=== PATIENT | male | born 1995 | race Caucasian/White ===

== ENCOUNTER 2024-03-04 09:11 | Emergency (ER) | payer OTHER, SELFPAY ==
[2024-03-04 09:16] VITALS: BP 144/90; PULSE 70; TEMP 36.6; O2SAT 100; BMI 25.1
--- NOTE | 2024-03-04 09:30 | XR_ITS ---
The [address] [address] Patient Name: ERNESTO MURRAY MRN: [id number] date: 1995 Sex: M Assigned Patient Location: ER Current Patient Location: ER Accession/Order Number: [id number] Exam Date: 03/04/2024 10:00 Report Date: 03/04/2024 10:58 At the request of: SULLY RUTHERFORD Procedure: XR thoracic spine 3V EXAMINATION: XR thoracic spine 3V HISTORY: Atraumatic pain COMPARISON: No relevant comparison available. FINDINGS: BONES: No significant spondylosis, scoliosis, fracture, or visible bony lesion. DISC SPACES: No significant disc height narrowing, subluxation, or endplate abnormality. PARASPINOUS: Negative. No paraspinous abnormality is seen. OTHER: Negative. XR/XR thoracic spine 3V IMPRESSION: 1. No appreciable acute abnormality or significant degenerative changes. Electronically authenticated by: ÓSCAR WATTS Date: 03/04/2024 10:58
--- NOTE | 2024-03-04 09:31 | ED_ITS ---
HPI HPI - Back Pain/Injury General Chief Complaint: Back Pain/Injury Stated Complaint: BACK PAIN Time Seen by Provider: 03/04/24 09:27 Source: patient Mode of arrival: walk-in History of Present Illness HPI Narrative: 29-year-old male presents to the emergency department for back pain. 4 days ago he was working on his truck and he bent over and he felt severe pain suddenly. He did not fall and nothing struck him in the back. He indicates the lower thoracic region, he does not have pain in the lumbar or cervical area. No dysuria or hematuria or weakness or any numbness. Related Data Previous Rx's ?Medication ?Instructions ?Recorded acetaminophen 300 mg-codeine 30 mg 1 tab PO Q6H PRN pain 5 days #20 03/04/24 tablet tabs ibuprofen 800 mg tablet 800 mg PO Q8H PRN pain #20 tabs 03/04/24 methocarbamol 750 mg tablet 750 mg PO Q6H PRN pain #20 tabs 03/04/24 Allergies Allergy/AdvReac Type Severity Reaction Status Date / Time Penicillins Allergy Severe Anaphylaxis Verified 03/04/24 09:19 Opioid HPI Opioid Management Most Recent Opioid Data: Last JUL Pain Assessment 03/04/24 09:47 Review of Systems ROS Narrative A ten point review of systems is negative except as noted above. PFSH PFSH Social History Little interest or pleasure in doing things: not at all Feeling down, depressed, or hopeless: not at all Exam Narrative Exam Narrative: Nurses note and vital signs reviewed and patient is not hypoxic. General: The patient uncomfortable sitting in a chair. Skin: Warm, dry, no pallor noted. There is no rash noted. Head: Normocephalic, atraumatic Eye: Normal conjunctiva, no drainage Ears, Nose, Mouth, and Throat: oral mucosa is moist. Nares patent. Cardiovascular: Regular Rate and Rhythm Respiratory: Patient is in no distress, no accessory muscle use, lungs are clear to auscultation, no wheezing, rales or rhonchi Back: No bruise rash or abrasion or palpable tenderness present. GI: Soft and nontender Musculoskeletal: The patient has no evidence of calf tenderness, no pitting edema, symmetrical pulses noted bilaterally Neurological: A&O, normal speech, lower extremity strength intact Psychiatric: Cooperative Constitutional Vital Signs, click to edit/add: Last Vital Signs Temp 98 F 03/04/24 09:16 Pulse 70 03/04/24 09:16 Resp 18 03/04/24 09:16 BP 144/90 H 03/04/24 09:16 Pulse Ox 100 03/04/24 09:16 Course Vital Signs Vital signs: Vital Signs Temperature 98 F 03/04/24 09:16 Pulse Rate 70 03/04/24 09:16 Respiratory Rate 18 03/04/24 09:16 Blood Pressure 144/90 H 03/04/24 09:16 Pulse Oximetry 100 03/04/24 09:16 Temperature 98 F 03/04/24 09:16 Pulse Rate 70 03/04/24 09:16 Respiratory Rate 18 03/04/24 09:16 Blood Pressure 144/90 H 03/04/24 09:16 Pulse Oximetry 100 03/04/24 09:16 MDM - Back Pain/Injury MDM Narrative Medical decision making narrative: X-rays showed no acute findings. He was given Toradol and Norflex here and prescribed Tylenol 3, Robaxin, and ibuprofen. He was also given a work note. Treatment diagnosis and follow-up were discussed with the patient. Differential Diagnosis Differential diagnosis: Likely strain of lumbar region and thoracic back pain Imaging Data Thoracic x-ray: Radiologist's impression: ITS Impressions Thoracic Spine X-Ray 03/04/24 09:30 IMPRESSION: 1. No appreciable acute abnormality or significant degenerative changes. Electronically authenticated by: ÓSCAR WATTS Date: 03/04/2024 10:58 Discharge Plan Discharge Chief Complaint: Back Pain/Injury Clinical Impression: Thoracic back pain Patient Disposition: Home, Self-Care Time of Disposition Decision: 11:11 Condition: Good Mode of Transportation: Private Vehicle Prescriptions / Home Meds: New acetaminophen-codeine 300-30 mg tablet 1 tab PO Q6H PRN (Reason: pain) 5 Days Qty: 20 0RF ibuprofen 800 mg tablet 800 mg PO Q8H PRN (Reason: pain) Qty: 20 0RF methocarbamol 750 mg tablet 750 mg PO Q6H PRN (Reason: pain) Qty: 20 0RF Print Language: Ecuadorean Instructions: Back Pain (ED) Referrals: GUERDA ZUÑIGA [Primary Care Provider] - 1 week
[2024-03-04] MEDS: ORPHENADRINE 60 MG/ 2 ML VIAL IM (09:47)
[2024-03-04] MEDS: KETOROLAC TROMETHAMINE 60 MG/2 ML VIAL IM (09:47)
== END 2024-03-04 11:18 | disposition home or self-care (01) ==
PROVIDERS: Emergency Provider Emergency Medicine; PCP Family Medicine
DX: M54.6 Pain in thoracic spine (principal)
CPT/HCPCS: 72072; 96372; 99284; J1885; J2360

== ENCOUNTER 2024-03-07 23:41 | Emergency (ER) | payer OTHER, SELFPAY ==
[2024-03-07 23:42] VITALS: BP 117/79; PULSE 95; TEMP 36.6; O2SAT 100; BMI 25.1
--- NOTE | 2024-03-08 00:09 | ED_ITS ---
HPI HPI - Back Pain/Injury General Chief Complaint: Back Pain/Injury Stated Complaint: back injury Time Seen by Provider: 03/07/24 23:55 Source: patient Mode of arrival: walk-in Limitations: no limitations History of Present Illness HPI Narrative: seen here Wednesday and diagnosed with muscular thoracic back strain. States his back was starting to feel better. States they are expecting new furniture tomorrow so he and his female partner were moving a small air conditioner. He picked it up and felt a pop in his right back at the same site as the original injury. he is suppose to go back to work in a couple of days but doesn't believe he is going to make it. States he came in to check that there were no other injuries or concerns. He does not have any radicular symptoms or extremity weakness or numbness. Not short of breath Related Data Previous Rx's ?Medication ?Instructions ?Recorded acetaminophen 300 mg-codeine 30 mg 1 tab PO Q6H PRN pain 5 days #20 03/04/24 tablet tabs acetaminophen 300 mg-codeine 30 mg 1 tab PO Q6H PRN pain 5 days #20 03/04/24 tablet tabs ibuprofen 800 mg tablet 800 mg PO Q8H PRN pain #20 tabs 03/04/24 ibuprofen 800 mg tablet 800 mg PO Q8H PRN pain #20 tabs 03/04/24 methocarbamol 750 mg tablet 750 mg PO Q6H PRN pain #20 tabs 03/04/24 methocarbamol 750 mg tablet 750 mg PO Q6H PRN pain #20 tabs 03/04/24 Allergies Allergy/AdvReac Type Severity Reaction Status Date / Time Penicillins Allergy Severe Anaphylaxis Verified 03/07/24 23:48 Opioid HPI Opioid Management Most Recent Opioid Data: Last JUL Pain Assessment 03/04/24 09:47 Review of Systems ROS Status of ROS 10 or more systems reviewed and unremark able except as noted in history and below PFSH PFSH Social History Little interest or pleasure in doing things: not at all Feeling down, depressed, or hopeless: not at all Exam Constitutional Vital Signs, click to edit/add: Last Vital Signs Temp 98 F 03/07/24 23:42 Pulse 95 H 03/07/24 23:42 Resp 18 03/07/24 23:42 BP 117/79 03/07/24 23:42 Pulse Ox 100 03/07/24 23:42 O2 Del Method Room Air 03/07/24 23:42 Common normals: average body habitus, oriented x3, no limitations, healthy appearing, alert and well nourished [facility] Common normals: normocephalic and head/scalp atraumatic Eye Common normals: PERRL, EOMs intact bilaterally and conjunctivae normal Chest Other: mild tenderness pos. thoracic right chest wall Respiratory Common normals: normal respiratory effort, no retractions, no use of accessory muscles and clear to auscultation bilaterally Cardio Common normals: regular rate, regular rhythm, S1 normal heart sound and S2 normal heart sound GI Common normals: Normal to inspection, nondistended, normoactive bowel sounds present and soft to palpation Extremity Common normals: normal to inspection and full ROM Neuro Common normals: oriented x3, CN's II-XII intact bilaterally, moves all extremities and no focal motor deficits Psych Appearance: grossly normal Course Vital Signs Vital signs: Vital Signs Temperature 98 F 03/07/24 23:42 Pulse Rate 95 H 03/07/24 23:42 Respiratory Rate 18 03/07/24 23:42 Blood Pressure 117/79 03/07/24 23:42 Pulse Oximetry 100 03/07/24 23:42 Oxygen Delivery Method Room Air 03/07/24 23:42 Temperature 98 F 03/07/24 23:42 Pulse Rate 95 H 03/07/24 23:42 Respiratory Rate 18 03/07/24 23:42 Blood Pressure 117/79 03/07/24 23:42 Pulse Oximetry 100 03/07/24 23:42 Oxygen Delivery Method Room Air 03/07/24 23:42 MDM - Back Pain/Injury MDM Narrative Medical decision making narrative: patient presents with recurrence of thoracic muscular strain. Patient given dose of steroid tonight. He still has muscle relaxant and motrin at home. Work note extended to include 03/09 to allow him more time to re cooperate. Discharge Plan Discharge Chief Complaint: Back Pain/Injury Clinical Impression: Thoracic back pain Patient Disposition: Home, Self-Care Prescriptions / Home Meds: No Action acetaminophen-codeine 300-30 mg tablet 1 tab PO Q6H PRN (Reason: pain) 5 Days Qty: 20 0RF ibuprofen 800 mg tablet 800 mg PO Q8H PRN (Reason: pain) Qty: 20 0RF methocarbamol 750 mg tablet 750 mg PO Q6H PRN (Reason: pain) Qty: 20 0RF acetaminophen-codeine 300-30 mg tablet 1 tab PO Q6H PRN (Reason: pain) 5 Days Qty: 20 0RF ibuprofen 800 mg tablet 800 mg PO Q8H PRN (Reason: pain) Qty: 20 0RF methocarbamol 750 mg tablet 750 mg PO Q6H PRN (Reason: pain) Qty: 20 0RF Print Language: Irish Instructions: Thoracic Pain (ED) Referrals: GUERDA ZUÑIGA [Primary Care Provider] - 1 week
--- OUTSIDE RECORDS SUMMARY | 2024-03-08 00:11 | XMS_ITS | CCD ---
Author Organization [facility] Inform ion Partnership [employer]PER[employer] [facility] Care Team Providers Care Resistor Coater Name Role Phone DR PHOEBE ZUÑIGA Primary Care Unavailable COLTEN HUMPHRIES Admitting Unavailable COLTEN HUMPHRIES Attending Unavailable COLTEN HUMPHRIES Consulting Unavailable Jose Heck Consulting Unavailable MD Rishi Guerra Attending Provider MD Phoebe Zuñiga Primary Care Provider [phone] AAMIR CH Attending Unavailable AAMIR CH Attending Unavailable Allergies Allergy Classification Reported Allergen(s) Allergy Type Date of Onset Reaction(s) Facility (2 sources) Penicillins Drug allergy (disorder) Swelling of Lip/Tongue/Thro at [facility] Repository Medications Current Medications Medication Drug Class(es) Dates Sig (Normalized) Sig (Original) pantoprazole 40 mg delayed release oral tablet (1 source) Proton Pump Inhibitor Start: 08-12-2021 take 40 mg by mouth once daily Pantoprazole Active 40 MG PO Daily August 12, 2021 1:13pm Problems Problem Classification Problem Date Documented Da te Episodic/Chronic Abdominal pain (1 source) Epigastric pain; Translations: [EPIGASTRIC PAIN] Onset: 08-05-2021 Episodic Esophageal disorders (1 source) Gastro-esophageal reflux disease without esophagitis; Translations: [GERD WITHOUT ESOPHAGITIS] Onset: 08-05-2021 Chronic Gastrointestinal hemorrhage (3 sources) Hematemesis; Translations: [HEMATEMESIS] Onset: 08-02-2021 Episodic Nausea and vomiting (1 source) Vomiting, unspecified; Translations: [VOMITING UNSPECIFIED] Onset: 08-05-2021 Episodic Substance-related disorders (1 source) Nicotine dependence, cigarettes, uncomplicated; Translations: [NICOTINE DEPEND CIGARETTES UNCOMP] Onset: 08-05-2021 Chronic Results Test Name Value Interpretation Reference Range Facility COVID[place] [facility] [place] SARS-CoV-2 (COVID-19) RNA KRISTYN+probe Ql (Unsp spec) Negative Normal Negative [facility] Comment on above: Order Comment: Healt hcare Worker?: N Result Comment: Testing for SARS-CoV-2 by RT-PCR This test was developed and its performance characteristics determined by [employer]) and validated at the [facility]. This test has not been FDA cleared or approved. This test has been authorized by FDA under an Emergency Use Authorization (EUA). This test has been validated in accordance with the FDA's Guidance Document (Policy for Diagnostics Testing in Laboratories Certified to Perform High Complexity Testing under CLIA prior to Emergency Use Authorization for Coronavirus Disease-2019 during the Public Health Emergency) issued on August 10, 2019. This test is only authorized for the duration of time the declaration that circumstances exist justifying the authorization of the emergency use of in vitro diagnostic tests for detection of SARS-CoV-2 virus and/or diagnosis of COVID-19 infection under section 564(b)(1) of the Act, 21 U.S.C. 360bbb-3(b)(1), unless the authorization is terminated or revoked sooner. PERFORMED BY: [place] [address] PATHOLOGIST NURSE MONITORING YANCY ARELLANO M.D. Performed By: #### C OVID 19 [facility] [place] #### [address] COVID-19 Positive/NegativeOr dered By: Rishi Guerra on 08-08-2021 SARS-CoV-2 (COVID-19) N gene KRISTYN+probe Ql (Resp) Negative Negative [facility] Comment on above: Testing for SARS-CoV -2 by RT-PCRThis test was developed and its performance characteristics determined by [email or web address]) and validated at the [facility]. This test has not been FDA cleared or approved. This test has been authorized by FDA under an Emergency Use Authorization (EUA). This test has been validated in accordance with the FDA's Guidance Document (Policy for Diagnostics Testing in Laboratories Certified to Perform High Complexity Testing under CLIA prior to Emergency Use Authorization for Coronavirus Disease-2019 during the Public Health Emergency) issued on August 10, 2019. This test is only authorized for the duration of time the declaration that circumstances exist justifying the authorization of the emergency use of in vitro diagnostic tests for detection of SARS-CoV-2 virus and/or diagnosis of COVID-19 infection under section 564(b)(1) of the Act, 21 U.S.C. 360bbb-3(b)(1), unless the authorization is terminated or revoked sooner. AMYLASEon 08-02-2021 Amylase [Catalytic activity/Vol] 70 U/L Normal 25-115 [facility] Comment on above: Performed By: #### C MISAEL GRUBER AMY #### [facility] [address] [place] [address] Dr. Jena Beavers CBC AUTO DIFFon 08-02-2021 BASO # 0.1 103/ul Normal 0.0-0.1 [facility] Comment on above: Performed By: #### C BC #### [facility] [address] [place] [address] Dr. Jena Beavers Basophils/100 WBC (Bld) 0.5 % Normal 0.2-2.0 [facility] Comment on above: Performed By: #### C BC #### [facility] [address] [place] [address] Dr. Jena Beavers EO # 0.2 103/ul Normal 0.0-0.7 [facility] Comment on above: Performed By: #### C BC #### [facility] [address] [place] [address] Dr. Jena Beavers Eosinophils/100 WBC (Bld) 1.4 % Normal 0.9-7.0 [facility] Comment on above: Performed By: #### C BC #### [facility] [address] [place] [address] Dr. Jena Beavers Erythrocyte distribution width (RBC) [Ratio] 12.3 % Normal 11.0-15.0 [facility] Comment on above: Performed By: #### C BC #### [facility] [address] [place] [address] Dr. Jena Beavers Hematocrit (Bld) [Volume fraction] 44.5 % Normal 42.0-54.0 [facility] Comment on above: Performed By: #### C BC #### [facility] [address] [place] [address] Dr. Jena Beavers Hemoglobin (Bld) [Mass/Vol] 14.9 g/dL Normal 14.0-18.0 [facility] Comment on above: Performed By: #### C BC #### [facility] [address] [place] [address] Dr. Jena Beavers IG # 0.03 10e3/ul Normal 0.00-0.03 [facility] Comment on above: Performed By: #### C BC #### [facility] [address] [place] [address] Dr. Jena Beavers IG % 0.2 % Normal 0.0-0.5 [facility] Comment on above: Performed By: #### C BC #### [facility] [address] [place] [address] Dr. Jena Beavers LYMPH # 3.5 103/ul Normal 1.2-3.8 [facility] Comment on above: Performed By: #### C BC #### [facility] [address] [place] [address] Dr. Jena Beavers Lymphocytes/100 WBC (Bld) 26.6 % Normal 20.5-60.0 [facility] Comment on above: Performed By: #### C BC #### [facility] [address] [place] [address] Dr. Jena Beavers MANUAL DIFF REQ NO Normal [facility] Comment on above: Performed By: #### C BC #### [facility] [address] [place] [address] Dr. Jena Beavers MCH (RBC) [Entitic mass] 31.5 pg Normal 25.9-34.0 [facility] Comment on above: Performed By: #### C BC #### [facility] [address] [place] [address] Dr. Jena Beavers MCHC (RBC) [Mass/Vol] 33.5 g/dL Normal 29.9-35.2 [facility] Comment on above: Performed By: #### C BC #### [facility] [address] [place] [address] Dr. Jena Beavers MCV (RBC) [Entitic vol] 94.1 fL Critically high 80.0-94.0 [facility] Comment on above: Performed By: #### C BC #### [facility] [address] [place] [address] Dr. Jena Beavers MONO # 1.0 103/ul Critically high 0.3-0.8 [facility] Comment on above: Performed By: #### C BC #### [facility] [address] [place] [address] Dr. Jena Beavers Monocytes/100 WBC (Bld) 7.9 % Normal 1.7-12.0 [facility] Comment on above: Performed By: #### C BC #### [facility] [address] [place] [address] Dr. Jena Beavers NEUT # 8.2 103/ul Critically high 1.4-6.5 [facility] Comment on above: Performed By: #### C BC #### [facility] [address] [place] [address] Dr. Jena Beavers Neutrophils/100 WBC (Bld) 63.4 % Normal 43.0-75.0 [facility] Comment on above: Performed By: #### C BC #### [facility] [address] [place] [address] Dr. Jena Beavers Platelet mean volume (Bld) [Entitic vol] 9.5 fL Normal 9.5-13.5 [facility] Comment on above: Performed By: #### C BC #### [facility] [address] [place] [address] Dr. Jena Beavers PLT 258 103/ul Normal 150-450 [facility] Comment on above: Performed By: #### C BC #### [facility] [address] [place] [address] Dr. Jena Beavers RBC 4.73 106/ul Normal 4.70-6.10 [facility] Comment on above: Performed By: #### C BC #### [facility] [address] [place] [address] Dr. Jena Beavers WBC 13.0 103/ul Critically high 4.0-11.[address] [facility] Comment on above: Performed By: #### C BC #### [facility] [address] [place] [address] Dr. Jena Beavers LIPASEon 08-02-2021 Lipase [Catalytic activity/Vol] 77.0 U/L Normal 23.0-300.0 [facility] Comment on above: Performed By: #### C ALLYN LIPA, JUAN #### [facility] [address] [place] [address] Dr. Jena Beavers PROF 14(COMP METB)on 022 Albumin [Mass/Vol] 4.7 g/dL Normal 3.4-5.0 [facility] Comment on above: Performed By: #### C MP LIPA, JUAN #### [facility] [address] [place] [address] Dr. Jena Beavers Albumin/Globulin [Mass ratio] 1.5 {ratio} Normal [facility] Comment on above: Performed By: #### C MP LIPA, JUAN #### [facility] [address] [place] [address] Dr. Jena Beavers ALP [Catalytic activity/Vol] 64 U/L Normal 46-116 [facility] Comment on above: Performed By: #### C MP, LIPA, JUAN #### [facility] [address] [place] [address] Dr. Jena Beavers ALT [Catalytic activity/Vol] 17 U/L Normal 16-63 [facility] Comment on above: Performed By: #### C MP LIPA, JUAN #### [facility] [address] [place] [address] Dr. Jena Beavers Anion gap [Moles/Vol] 10.7 mmol/L Normal [facility] Comment on above: Performed By: #### C MP, LIPA, JUAN #### [facility] [address] [address] [address] Jena Beavers AST [Catalytic activity/Vol] 14 U/L Critically low 15-37 [facility] Comment on above: Performed By: #### C MP, LIPA, JUAN #### [facility] [address] [address] [address] Jena Beavers Bilirubin [Mass/Vol] 0.9 mg/dL Normal 0.2-1.3 [facility] Comment on above: Performed By: #### C MP, LIPA, JUAN #### [facility] [address] [address] [address] Jena Beavers Calcium [Mass/Vol] 9.1 mg/dL Normal 8.5-10.1 [facility] Comment on above: Performed By: #### C MP, LIPA, JUAN #### [facility] [address] [place] [address] Dr. Jena Beavers Chloride [Moles/Vol] 99 mmol/L Normal 98-107 [facility] Comment on above: Performed By: #### C MP, LIPA, JUAN #### [facility] [address] [address] [address] Jena Beavers CO2 [Moles/Vol] 33.7 mmol/L Critically high 22.0-30.0 [facility] Comment on above: Performed By: #### C MP, LIPA, JUAN #### [facility] [address] [address] [address] Jena Beavers Creatinine [Mass/Vol] 1.04 mg/dL Normal 0.66-1.25 [facility] Comment on above: Performed By: #### C MP, LIPA, JUAN #### [facility] [address] [address] [address] Jena Beavers EGFR-AF BRUNEIAN >60 Normal >=60 [facility] Comment on above: Performed By: #### C MP, LIPA, JUAN #### [facility] [address] [place] [address] Dr. Jena Beavers EGFR-NON AF BRUNEIAN >60 Normal >=60 [facility] Comment on above: Performed By: #### C MP, LIPA, JAUN #### [facility] [address] [place] [address] Dr. Jena Beavers Globulin (S) [Mass/Vol] 3.1 g/dL Normal [facility] Comment on above: Performed By: #### C MP, LIPA, JUAN #### [facility] [address] [place] [address] Dr. Jena Beavers Glucose [Mass/Vol] 96 mg/dL Normal 74-106 [facility] Comment on above: Performed By: #### C MP, LIPA, JUAN #### [facility] [address] [place] [address] Dr. Jena Beavers Potassium [Moles/Vol] 3.4 mmol/L Normal 3.4-5.0 [facility] Comment on above: Performed By: #### C MP, LIPA, JUAN #### [facility] [address] [place] [address] Dr. Jena Beavers Protein [Mass/Vol] 7.8 g/dL Normal 6.1-8.2 [facility] Comment on above: Performed By: #### C MP, LIPA, JUAN #### [facility] [address] [place] [address] Dr. Jena Beavers Sodium [Moles/Vol] 140 mmol/L Normal 137-145 [facility] Comment on above: Performed By: #### C MP, LIPA, JUAN #### [facility] [address] [place] [address] Dr. Jena Beavers Urea nitrogen [Mass/Vol] 10.0 mg/dL Normal 7.0-18.0 [facility] Comment on above: Performed By: #### C MP, LIPA, JUAN #### [facility] [address] [place] [address] Dr. Jena Beavers Urea nitrogen/Creatinine [Mass ratio] 9.6 mg/mg Normal [facility] Comment on above: Performed By: #### C MP, LIPA, JUAN #### [facility] [address] [place] [address] Dr. Jena Beavers PROTIMEon 08-02-2021 INR Coag (PPP) [Relative time] 1.03 {INR} Normal [facility] Comment on above: Performed By: #### P TT, PT #### [facility] [address] [place] [address] Dr. Jena Beavers INR GUIDELINES SEE BELOW Normal [facility] Comment on above: Result Comment: BEBA RED INR: 2.0 - 3.0 CONDITIONS NOT LISTED BELOW 2.5 - 3.5 FOR PROSTHETIC HEART VALVE REPLACEMENT 2.5 - 3.5 RECURRENT THROMBOSIS Performed By: #### P TT, PT #### [facility] [address] [address] [address] Jena Beavers PT Coag (PPP) [Time] 11.1 s Normal 9.0-11.6 [facility] Comment on above: Performed By: #### P TT, PT #### [facility] [address] [place] [address] Dr. Jena Beavers PTTon 08-02-2021 aPTT Coag (Bld) [Time] 29.2 s Normal 22.3-36.2 [facility] Comment on above: Performed By: #### P TT, PT #### [facility] [address] [place] [address] Dr. Jena Beavers XR KUB 1 VIEWon 08-02-2021 XR KUB 1 VIEW EXAM: XR KUB 1 VIEW HISTORY: NG tube placement COMPARISON: None. TECHNIQUE: Single view FINDINGS: IMPRESSION: Nasogastric tube has been placed. The tip and sidehole are below the diaphragm. The bowel gas pattern is nonobstructed. The visualized lung bases are unremarkable. Electronically authenticated by: JOSE HECK Date: 2021-08-02 21:56 Normal [facility] Coding Summary.on 02-27-2021 Coding Summary. CD:[id number] G h0bWw+PGhlYWQ+VE2ZQLD gS70xhRKdoH8GY3zMZM7Q LJBPMCGDJS9TWH4buWX2J BedG8AtjhHl EdirwWNuPG29SXt6DUU7j BysFGxyyG1osNGgY0t1An JpCR03kM64GJlrZBRcAdG 3LjZpbjsgbWFy C9zpObUjaFMbRle+PHRhY mxlIHdpZHRoPScxMDAlJy OpcLdhSX5bAi4sCHAlUZY vbGxhcHNlOiBj z4gwRESwPGqeET9jpFgsM 1KawNI8MTLwz4q1Im52gV I+QEYvDZE4bQzeAHjtl72 4ZiOhh8caEXT9 iSOiJEaaKZK0H60rm1N6P ISbWTDaSSP7dSZ7oN6gdU eujeydS8QvrBNmXcD2FYS 8qCQvnQ0beNau kimjjT2dDxz+U72FDC0PU SWZUD2TYmc9R4LdXuwtgF I+CD53WYClWT26zEEjsRT mf2susEs9YvZw KYBbHDK4pFalBAodh4OdU WSzN11xrPGgg2X8UZFxbQ hbdONpPlPduWI3tP5nDBs klmcjn0yqelek Lgfit0wbay69lH85T06tX NcmSFTcIZI5FHTpBIYknH gjir2otL8vVs0+LXhtx0x lt7hnaAb5KvCu NBLnlqRyaHpxFAC9k4LhZ n75B9RekSpgt7EjEyj5hs 86tEOzb6C8xPV8ASkeJIZ glO0oWDnnLeL1 NUBtFqJbvR35kLRnCNzrT x1uyLxoyGvnAT0eZWOvcz irIJNfgZ2lZZGroUSwdQt vMP5cUFLzmcel e405KcYyIEO6HWFxmEPkQ 7OufJ3pPmShIHWxRXUlR2 RgsVSdHTaeV611MVxmZwM 9CXKquqEvV0Ds NYGxiGmeOuH3j7L9Ml9Jl 4QqhsxeBMU6LXnwVVKxAj OnXaXqBnQ4M5KkSnr8DBL lsXvlLH9jY2Tr ERMfdhfysudklVE9FFIkN XWeoE73hWTnIOvnGs3xe0 R1x510OBRiUAAvtV13If9 udDogMTBwdCBU dR0ikrosi3qwrnmaElDuN RVoXCb2SXm3VCSvpGpbDh BsNCX7FlU7MDQ5dMGqbY8 ckAevlhqksW4m Oyc+Q55jfU0fXMC8NSH5u dctAWMsehQjVJ25OE42K7 RyPjwvdGFibGU+PGRpdiB psBeoGI2zIeFh p8xcc7EeEWfaE1LtCJZjY KzaMgg4JTEtHNI3oIP7lR 8pIFLdSNfrz1C9uKR6F8Z eftWxjp7qa3uj NPDyUTmjX00ctWBik9O5E ZFawQY4IQOydEijQzBuiR 93Oyc+RJAofTkbh5XoBxg jk9kan9wzkPu5 JgTkFHSqltCgwHbdWIL7j 5MnNc34R77bTDvsVGBeBK QbXOXdAMLpkEitwo7nlM2 wIi8+PGNvbCB3 fTL8iI7bRKBbTtO8CAcjM 202ZeMtmFKpEwvgm7egt4 jruYv6AiTkTOJwmbZhzRr kPRG9h4YoUw15 A00wBMnsHYHvICCqIGSzL PJfxEjhkf3wpJ7zTe3+PC 3lw1xsru37dD01xMZ+PHR aQVR7oPrvXTwt PHGtuD5hQJltJpS5CIQeM cCwnH83sPNhXQikQn1bnW uipLdjIM3pLHEkwazme19 0HmXwu0zcIKWv gMStJXwaXAG5W50tc2F1V ZIiXVPnZUD1wBR9nZ6ivW lnbjogbGVmdDsgdmVydGl hGCopBRdiC028 IHRvcDsnPlBhdGllbnQgT ySuBPd7N2HrTbr4YLIzsW dnIS6ewUHaMVkpOm5jiCq nqQvgVQ9lOPTk fithh070WoHcl6slXYTdo HZfATwdHZO1N52em8Y1AD WkEZZuEHB3jNW6lM3pnLj nbjogbGVmdDsg vuVakKglGViwVVbhB209E HRvcDsnPkJpcnRoIERhdG F1KH81FR13gSUmq3W2mAQ 6T6DdITWotpbb rxdwxLA7JLFgHDKjgI75T t5vkAcwRt8iMYYfUTI6FO QwmWKoJ4LzfZ1cSvSnCAL gRDXiU7ZtzJHt VOrkU346KZjgXvF1CTVil lWhE7UoZPYwuQjoDlR3n3 R6Lu3NE9W5NP93TB65tDR ng7Z2nPS4Y9Sj GTQplqcpklhmfLX9XVShG VBgtW53Sq4abCavZj5mJK WxOII5VMNseWXuC9KteS0 yOiAjMDAwMDAw U6SbwSBlQWsgP223MAcwF eW4KNTyljJcA0BeIGMlgM soMtU3h1T3As1HAHs8VK0 8DA08pKOat1Q2 qOK0V8LhUOOranukpgswu YL2MBNxCADwgV52Uq4ujT tcJz8gDFWiDPC7JZBxwOD rH1NvvL6vErIr LUHrKIHhS8SagSCjRBydR 927YCypAbW1CAAlwoYvU6 RiIOFbmBwpVrJ7n2S8Tk3 FCHQtGB66YQG7 qEP2UM63OF12F7MrRtoze GFibGU+PHRhYmxlIHdpZH RoPScxMDAlJyBzdHlsZT0 tIa4qVEGjMSTd kJdftQZxPiPfg2jcVECdD UugKY8nfKzcD6GqjIJ6NY Gls8p8Gq92S87lU0RbhHD +LFSmfIC6cNI4 wC7qKiJlNwX1IKpnU039V dJgkNMkMcogh9dce1azfS u7XgL8ZTQnnxNbrTjmMSD 5g5SvYc54Q05o IHdpZHRoPSIxNSUiIHZhb Qdtdo7hfT8gJb1+PGNvbC C5gYX4vT6wKbJiSmE2EFx mP922KiPwzFXf Chuyi1ddk1aewCs4YpRjL SQidzQsoGuoPSE5n9EgUe 80N5GfdMlmu4VeTdv8de3 5oKAim8D6pKC7 O9XkQREdqhefpWGmkSxsG T8xOSYfdgfwUPOckI6mOI RvW0b4PvDzIgT0YCpgV9Y hxfY6KZCqnVVw BWrbSKR2I36eu1H3RHLzL SYpAMZ9jFB0tU0slDqpnd ogbGVmdDsgdmVydGljYWw hLSlxF356RVEe aTkuMNRqzM0xNXLddCDtk WhqNP4hTKHzrwaxPoZRQT VMREVOLCBNSUNIQUVMPC9 9PG97nKBuo8I4 vYL9U6DiMKEilwzwgqces ZS2PFVuLSMdzP38lMOuQG trJg9hp6C4o908OGZnDDL wgX18Cz4ipBim ADShiRSAdS7iwriir0wlc hqtWdTyCJAmCKh1NVp0SD IcyFrrRiIyBZZ0VfI3LAY 3rXVstE4pgIfz gbqaeP9jGgp+MDgvMjYvM Eh0DyrjnDH+HGMuJIX1aL mhOFrrPZKszK6mCJMiI9k 9SaIwDfS3ORzj B5OePFXiuuteSi13gB2iK xUnXsF4MGnbX1XjiuH3PA WwsTXkSCcgCHN3V08yt7D 4GSLfKWOfGLS7 zYT3lB6akTtsbdrzwBNbt DsgdmVydGljYWwtYWxpZ2 16FTVnaBjaYvR4JCxeFPV gWF47XE78pDUg o4G9oQN8H4WjFWGaweggg bgeqRM0YAHhOKHduI79aC AlHSlkNg0ck2R6f738EOS nPJRprE55Yj3l sLjeDHPjsAMGmU3yfhdyi 9rlonjdXwVvTNLeSTx3CF g6BWGzyFtxCxZuAFA9MtO 4HVO9bYCwmG5k tHjflrngmU9oLmo+TWFsZ TwvdGQ+DZXbBUT3wRbkDL qcUYUodQ5oGCFkI0y0UfY wEfM6QEmyJ8Fd RXHraisrRm93vV8wIcCbP eQ2DWwzZ3LrjmK3NBEuaI HaZQudJEK5X17pk8T6SYP cWMXtFEF0kHA0 eM6qkEvswsbkkDNzpYzew gUnnZqePExhRZgzQ476AZ IjzTrpJiXvA8JfkbjfVmw vdGQ+GD57gw72 C6XoNjfuKrd6AREdOBE0e UU5gM5wYJZlAGire0E6dS M8L4EyqeDubv5zk3xuMIR fFGwmU27zjFMe m0C4LBVnqIE4ZAFxoRccK cWbcU09Oyi+PGNvbGdyb3 VjSleuf2fge2fvfIy3HnE wJSIgdmFsaWdu UII8w0YnCw31L24uLRwvE HRoPSIzMCUiIHZhbGlnbj 2loW8mXw2+WFJwnVT6wXT 0dA1cCuCgEvP2 TDbhG299PaAaxZYtNkitd 5icj0udrRe7AfLoDFPxux FdyHpyLII9z1JxOi15Y0Y wsRmyp5VvIdh9 ri47uBLsq2G9lED9P0MmG WLgntudcISeoJwwRL8zXI HzmpfnROChjW7aNBWpN1t 2HnUwMeN7NQrs V8NbcwQ2YTTckKGfHAIlu PPVwA4ljmffb6jgyktgDk EvKVOjGXa8DEx6LMKvqEq rCyXaESJ1QeP4 HYF3qSZneZ9ykAwsdwrgo G9wOyc+XQx0u8kqdSQyMY 3gkXK5SD31IJ95eCDgk7H 8dXK3G2ObTIWc qwilbiyyhTU2IODsXBFbe A54Pe4faOslVg2fZBSuSJ T3RCJqeQUeN0EqsJ7bPfC kRONrCNXyV9Kj jZNlYGjgS387VBseBeE7G XByqrLcT5XwJGOcyYpnEp C0o6S6Yb6ZWK05WL38KP4 5iEPkm7R3kSO7 P0EmAEAehkajhnkpmLG0M ANfQSImuL33Ma8giPteSc 0aQKNxGAH5WILajOJaS8F bsR0nRcKzDJYg MDDpN6XrkVGoQGquZ810D ZlgMcV1CHLchwNhT4EtBI TtqUhrCxR3p5O9Yk7TJc6 5SA26HA66tCMz i5W7sXA2U7UjILWwybejb xhpzQY0AZHpSFDpsK59Yt 6swViqLn8sBQInIGN3MLR izVViD0LulM0z PpHrIPLxYMObZ1LnaAZqS VicA153OPqiEkN4ZHNhcw PiV6UiMLEffLnyVgB9q6H 4Sk6PGSvcfbx3 O1EzSwoklED+XN12ZLDsB F29gVNonGQlr5wseBh0Bf TfLXYhPVM7fXkbYObss1U iFPZjK16llBIf c2U6 (more content not included)... Normal [facility] COVID-19 ([facility])on 02-26-2021 SARS-CoV-2 (COVID-19) RNA KRISTYN+probe Ql (Unsp spec) Not detected Normal Not Detected [facility] Comment on above: Result Comment: This test result should be correlated with clinical presentations and medical history by a healthcare provider to determine its clinical significance. This assay was performed by a reverse transcriptase real-time polymerase chain reaction (rt PCR) method on the [employer] system. This test has been authorized only for the detection of nucleic acid from SARS-CoV-2, not for any other viruses or pathogens. This test has not been FDA cleared or approved. This test has been authorized by FDA under an Emergency Use Authorization (EUA). This test is only authorized for the duration of time the declaration on that circumstances exist justifying the authorization emergency use of in vitro diagnostic tests for detection and/or diagnosis of COVID-19 infection under section 564 (b) (1) of the Act, 21 U.S.C. 360 bbb-3 (b) (1), unless authorization is terminated or revoked sooner. Performed By: #### 2 [id number] #### [facility] [address] [place] [address] SARS-CoV-2 (COVID-19) RNA KRISTYN+probe Ql (Unsp spec) Pass Normal Pass [facility] Comment on above: Performed By: #### 2 [id number] #### [facility] [address] [place] [address] Specimen source Nom (Unsp spec) Nasal Normal [facility] Comment on above: Performed By: #### 2 [id number] #### [facility] [address] [place] [address] Employed in Healthcare Unknown Normal [facility] Comment on above: Performed By: #### 2 [id number] #### [facility] [address] [place] [id number] First Test Unknown Normal [facility] Comment on above: Performed By: #### 2 [id number] #### [facility] [address] [place] [address] Hospitalized? NO Normal [facility] Comment on above: Performed By: #### 2 [id number] #### [facility] [address] [place] [address] ICU NO Normal [facility] Comment on above: Performed By: #### 2 [id number] #### [facility] [address] [place] [address] ? NO Normal [facility] Comment on above: Performed By: #### 2 [id number] #### [facility] [address] [place] [address] [facility] Normal [facility] Comment on above: Performed By: #### 2 [id number] #### [facility] [address] [place] [address] Symptomatic as defined by CDC YES Normal [facility] Comment on above: Performed By: #### 2 [id number] #### [facility] [address] [place] [address] Consent for Treatmenton 02-08 Consent for Treatment [id number]:127 Normal [facility] Coding Summary.on 12-04-2020 Coding Summary. [id number] h0bWw+PGhlYWQ+UH7ZDSA bW37epNJcpY2MJ0oQHU3D TKAUYBSNMF6EIB5ywWH3O TgvB2BbxdKu CfhjxXIdMA91WEo4WVX0k XcfKZyinJ8beGJrL2m6Ds WlWN69kY43VKkeXCKkPuP 3LjZpbjsgbWFy D9tcYnLqdSLjQsx+PHRhY mxlIHdpZHRoPScxMDAlJy WawNujXX6uRn0vGKQcTJC vbGxhcHNlOiBj o0taTGCxLMyfFC6axYoqY 3VljIN2VRPdg5i7Cn76xF I+TNIyVNN7wVqiQZwcw24 2GvNhe1vaMYX0 kDDpUPwwMCR1O78yh3W7R IHpQDHqCVG8jBZ2mO1ctM lupanzY6KryPKyHkG0TOS 3eRMpcN3gkRkc zsfrkB0eGox+K45MPR6EM FYASC6VLpc2Y3YbOnmsoK I+MX26FOXxAN09uZLomXR kp1zzxIn8AxTu DOZzDJA5tSvrRQuul6SuA FNlN60irDFtc4J1WRRpyX okrYVdQqRmsYY4dN1eSNe qaakli5exvbkx Npger9tebf27bX84N27fS RerUAWvPXJ0NWFqMCIpfV dpgo0dgE5rCn7+PLups1z sb7ogrKd7SkPa SYDbckKjzQktDZV5r3PbZ z53S2FovQfzm8JcSff3vm 64bMUbu1J5tCI4LYvpAZA ffM5bUKjiDoY6 VMZxYlSfmR76gPIvLVamY i6frUzxbSpdVZ6hYZKezs hyDGOyuT7xXZVcrTQtzIl hOK7bGRThgfsk h169GfVqJQI1IMWrmOJwR 6VhhG7oGoAwGQJzVMIfF3 AmnSGmCPpmJ465UIomJtG 2KOJmtuBtD6Os UFSxrOkfBfG1r5I5Ef6Gj 3UssmkwTMG1BJxzKPM2Iy K1LmPjOoF8T0NhNxa0GJE zsGwzEK9oR8Xu ZXEstdmlghezhLJ2ZNGnE NOyjJ18dUZbRXbjSa4qp0 C4r458ZBFfSIEpbL25Ba3 udDogMTBwdCBU eM9uqnrfy7bbjuamUqXgE YFwRGq8POy0XIMvqWzaJl SnUMH6WgR3HSC2rWLhxP1 caFkxbnszaV7z Oyc+I50qnL5lWJJ7LLH7k ewiYNDagkRbOW81IF20E8 RyPjwvdGFibGU+PGRpdiB wjZauDH6cSdXx w1nls5CxJTtuD0OlTHBfK BboIyz0FNHcPPR9fBX4tE 4bTMAeUIfhx6C6eSS6Y5H lvhRdoo5eq1eh TNBnZDeeL19ptCPnn4S1H QZbwOV7DUTzeCinIcMsuM 93Oyc+ECIzyEchp5DqLjb kx5qwv6ygcHd7 UtDmYYZsejCzyMbyLCJ1y 8IzNs10J49nPAzsGDPeHU IsNWQhKVHyaYpztx4phT5 wIi8+PGNvbCB3 hPY3iB2pZSEdKlS1MZqxE 809UnSivARoMifed9tjk0 zwtMp1VmYkJNNhciMqsAy sLWJ4d4JvEm88 S06bNHaeIDSrJRRyJWGoQ GNvbFfhpl0bkZ9oWc2+PC 8sd3yfhi75vL16aJI+PHR aMZS5oCugYUxq OIHuhO9qXLsjJwF7AFAwF hDrbH11hYHyYGbjEl3brM kdbVryPA1hHSYylbfly81 3EhWfe1upGCTd cSCjBJblNGF1J81ez7B9Y GDlXJWcVFJ1hPH4oB2caA lnbjogbGVmdDsgdmVydGl jNMlfYCaqH996 IHRvcDsnPlBhdGllbnQgT vOlRUf7A5TaJxm0HDKesS luEX5zsYRvVWtpMt5shEf htMnoDU3bZHMx rgugy137FkBin5heMKXxy OTpLMvyIMX1C20qg2K8GR UrRXIpDXG4wPD2pX8seCc nbjogbGVmdDsg nzJriPcrEOqpGEesC832Y HRvcDsnPkJpcnRoIERhdG B2IZ33PC81sZXlj1A8mOM 1J2IsZUTebbir nemenII5EOKaJKAndV47V y7gfBisPz2tWLHhDJV4XM FciYOjS5FlxJ0kMbQzQSZ uKPRzF8JosJJl IJxwM740XHdxMiQ9YJGrt dWiR2JhSLThjZscUlA1b1 I0Uq7HH4E5NM32BG38qYT uk1B8tXD7C3Bf GUIobglcyfumvUU9SEStS LLmjB86Ct6yxLejWa8hTG FgJSM3CNClpAZsE6LgdD5 yOiAjMDAwMDAw P9UclZUeOWflE525XCltF wL0GUTwhpNyE7OcVGNtnE toOwL7t2R5Ae8KAFk7YR9 6SF16zNHsd6X8 yQE1U3JzWVBdskmhkjfsf MU8NXPlBIIivV51Sh7xnT srMd5yIRRmMPM5FBAxxRN gF4ThvG6xGhJi EQFdBCWfR0FciCPfYSsbY 246YNmtUvH9EDZlpdZcK4 DrXOWmzWbrLmH8n1Q6Zk2 ZVGBvGI24HGV1 aCC7EH46CJ15G4VvGdfss GFibGU+PHRhYmxlIHdpZH RoPScxMDAlJyBzdHlsZT0 sPv8wMCCnRULq ySzdgCYrOiJuc0qzXIHeH VdzBU5hyAwkL3KzcUP9VS Jwh4j2Qh45P04mU5UkrGH +DNXbeAC4rXR1 zX3jWzSmThX9GCboI462K oIesPUmPfgil7lvt1nxdQ p1OlT3VLVjruDhzHpkIRZ 1g2YoTz33E31b IHdpZHRoPSIxNSUiIHZhb Inmvc6ynS6gRa9+PGNvbC W7fWL4xG9vFtBgCmQ8AJz fX415FdBodEKg Jghlw9dao9xasHc3PbJxQ VKgkaSndPlrLCS8r0BnKa 72G6QhdDuix0XvKzg5dr9 8eMHfd1Z4dOI4 J7QtQGTtypjvyGEmuWuuM V5pALLbfepaSTLbfZ6sLP WsC8t0NdAcImM0UEeqU9J hqwB5VQVexZGz NKzyIAM5H35jb6S0IMDpR ZSpDNJ5nRS3kG1awHngyi ogbGVmdDsgdmVydGljYWw iITknB580ZFVi jJqmESOkvZ7wUPHhbMOdh XsvFS9hFXXefhkmWhMCGR VMREVOLCBNSUNIQUVMPC9 7YN57pHNyf3L2 vII7P6GqCFKszfgheeufj AX2TNUnPTMexG89oZQoAD ogEe6qz4Y5r514RDWeNNV swS12Da9zkWxl EOXqoXIZaH0uevqbt2rak kzkQcSqKJLeXCm2PFs6WM RrzEqjHwTgRTU9NiP8SZB 4gJGpgL9yiOia umdazN8uNai+MDgvMjYvM Ya7ZoqvdEW+DQGgFPQ5nG ruSFxjZSAqvM0iOSRkZ2o 3VfPaApY3OFbt T9LzNUIckmjhQb00hW3qJ zWqLkR7SEevW7DovkC1KF PujSDuBRjmNFT6Z29if3V 2IBSfENFuQWX6 xQM3vU9baJfwjaejoJNsw DsgdmVydGljYWwtYWxpZ2 40JNXmsDskRxW5ENueGSH nQX24ED60lJTo k5D9tOF8H2TkGEUhuaqoa btogGM1EIBjVCYlhE53tT DaTCrhTw4fb7M3u555FQU kEKLfsJ63Pn9d dQdsGFUydRFXlC9wzibpw 6ragaisGtSxPJKrGUo6UD i8PXCgtIrnDnSjDIE0XwK 6FZL9fWTbwO9j jBxlulxflP7mDhc+TWFsZ TwvdGQ+YKDhOTW7oKsjRM gdTSXfqX0cAJIzJ7i9ZrJ cBjP8FHtlF8Vp MRSgyeejTh59eM7gYlGnG uY7TWcrT2MaymJ6PKShtW RmONwjRFY7U23qf1I3HCI lOIPiYHX0mTZ1 nT8qlEpstbwpwQHwnOqal kRchZybACixCMeoR249RG LpnCeqQdVwDZMfHK0elEs vdGQ+RQ59xl07 H0UbQiavOti1GJXlQXH6x KL2vN6gJREsKOqeg2Q7hF Z0A8NdlsWhdu1rp3zxZHA wRUrkA20zxYEm f5Y0RNHvkPQ7LXDhaSxdW eYdnE77Cdy+PGNvbGdyb3 GkZbtty6vyv4amdOm6BuV wJSIgdmFsaWdu MZJ9c5WzWl86O70rKNnqT HRoPSIzMCUiIHZhbGlnbj 2ksY1qFi0+MVQoiRN4bJZ 2wE4fSpTpLaJ1 YYdbF740IfZslLJlBnhjy 5kxl3bzoGf3ZgSlCZEwdj HnqUisHOG6u1SqKw47Q0I tjSyat7ApKfc6 cs02jGOuu9Y5wGC8K5TpZ JTjclpcyZUqtLllTZ0tVV KsfifaELMozU8tJLXlH6t 1RcUiZuN3BMro F4HzxsU9VCPmyUUiPLYfl GOIaB4spavqk9babhlyVb KaALExRRe5QNw5BBBudOb rXzYrGEA3UrA7 PVQ6dHRwfK1dnSvxchumm G9wOyc+FWd4s5jqfSKxUK 7oaES3FT76UM52cHLug7P 9zZN3M7RsSZGs qctjvncmuTP7TBLdVWTxk P53Hu3srSyiNy4qOIDqAR U7EAQjyDVsB8FxpK2eXgU eRHGkYSEtO6Fz wAAcJZakR663AElvTfK7N LZqbqGdK4PlCTRgaNnlOs N1t9T7Lw2QKT34OE81ZM7 5dUJwd2U8dLW3 O0RqGWFmfhgwwruzhSQ5B OKnXYLcdT68Do0fwQbwUu 3wYDXsQQV3XQDvkBTcH9Y kyG8dCsYkEVXv GGUcS0VtyGHvPHqiB471J HupEqC9MLTpnaKcO1OpFB UedVplSpV8f1E4Ha6EZd3 1LI17WN96lIRd r8D2lZX9Q6ZxDJVldojxc vpjtGB5YWFwPSOsnY80Iv 8dcGzuZi0tXXKxNCF5PEO kgOImB7TahD7l BfFpNUDaCWLeJ1UgiXOkZ QtxD741VIuaFfA0QQXheu XpQ6CjRLStlAfmUiS0m7K 8Ku0JDXdmcih7 P8SwDccncDG+YX79KVMgL H49iPEusUTjp5mndVm9Eu LiWGJaIKR3jWsiZTbaq6K zETDvG56rcFHh c2U6 (more content not included)... [facility] Consent for Treatmenton 11-08 Consent for Treatment [id number] .[email or web address]:127 [facility] Discharge Instructionson Discharge Instructions [id number]# 1.00CD:127 [facility] ED Clinical Summaryon 2020 ED Clinical Summary [address] [address] ED Clinical Summary Person Information Name: ERNESTO VILLANUEVA/Nitesh Age: 25 Years : 1995 Sex: Male Language: Tajik PCP: PHOEBE ZUÑIGA MD Marital Status: Single Visit Id: Visit Reason: Back pain; FLANK PAIN Speciality: Acuity: 4 Enc Type: Emergency Med Service: Emergency Arrival: 12/03/2020 11:03:47 Discharge: 12/03/2020 12:29:44 LOS: 000 01:26 Checkin: 12/03/2020 11:03:47 Checkout: 12/03/2020 12:29:44 Dispo Type: Home (Routine DC) EVENTS: Event Name Event Status Request Date/Time Start Date/Time Complete Date/Time Arrive Complete 12/03/2020 11:03:47 12/03/2020 11:03:47 12/03/2020 11:03:47 Document Home Meds Request 12/03/2020 11:03:47 Triage Complete 12/03/2020 11:03:47 12/03/2020 11:10:18 12/03/2020 11:10:18 Bed Assign Complete 12/03/2020 11:06:46 12/03/2020 11:06:46 12/03/2020 11:06:46 Dr Exam Complete 12/03/2020 11:06:46 12/03/2020 11:07:10 12/03/2020 11:07:10 RN Exam Complete 12/03/2020 11:06:46 12/03/2020 11:18:29 12/03/2020 11:18:29 Registration Complete 12/03/2020 11:07:10 12/03/2020 11:57:25 12/03/2020 11:57:25 X-Ray Complete 12/03/2020 11:10:30 12/03/2020 11:15:17 12/03/2020 11:25:53 Meds Admin Complete 12/03/2020 11:10:30 12/03/2020 11:13:55 Dr Exam Complete 12/03/2020 11:11:04 12/03/2020 11:11:04 12/03/2020 11:11:04 Wet Read Complete 12/03/2020 11:25:53 12/03/2020 11:28:56 12/03/2020 11:28:56 Reg Complete Request 12/03/2020 11:57:25 Discharge Complete 12/03/2020 12:23:34 12/03/2020 12:29:53 12/03/2020 12:29:53 Transfer Complete 12/03/2020 12:29:53 12/03/2020 12:29:53 12/03/2020 12:29:53 ADDRESS: [facility] 05/11 [facility] [id number] PHYS DOC NOTES: MEDICAL INFORMATION: Prescriptions Given: New Medications Printed Prescriptions methocarbamol (Robaxin-750 oral tablet) 2 Tablets By Mouth 3 times a day for 3 Days. Refills: 0. naproxen (Naprosyn 500 mg Tab) 1 Tablets By Mouth 2 times a day as needed for pain. Refills: 0. PATIENT EDUCATION INFORMATION: Instructions: Thoracic Strain Follow up: With: Address: When: PHOEBE ZUÑIGA [address] [place] [address] Business (1) In 3 days 12/06/2020 DIAGNOSIS: Back strain Normal [facility] ED Note-Physicianon 12-04-19 ED Note-Physician Basic Information Time Seen: Uli Shah PA-C 12/03/2020 11:07 Chief Complaint Annika presents after lifting washer today and has mid right back pain. denies bowel and bladder issues History of Present Illness 25-year-old male comes into the ED for evaluation of back pain. Just prior to arrival he was helping of a washing machine when he felt pain to the right side of his back. He points to the right thoracic region as the area of tenderness. No chest pain or shortness of breath. No abdominal pain. No nausea or vomiting. No lower extremity weakness. No other complaints or concerns. No prior treatments. Review of Systems A 10 point review of systems is negative except as noted above. Medical and Surgical History: Reviewed and noted Social history: Lives at home Tobacco: Denies Physical Exam Vitals & Measurements T: 36.8 ?C (Oral) HR: 67(Peripheral) RR: 16 BP: 130/92 SpO2: 100% HT: 170.0 cm HT: 170 cm WT: 73.0 kg WT: 73 kg BMI: 25.26 Nurses notes and vital signs reviewed and patient is not hypoxic. General: The patient appears well, resting comfortably. Skin: Warm, dry. Head: Atraumatic. Neck: No JVD. Eye: Normal conjunctiva. Ears, Nose, Mouth, and Throat: Moist mucous membranes. Cardiovascular: Strong distal pulses. Chest wall: Respiratory: Respirations are nonlabored. Back: Tenderness to the right thoracic paravertebral musculature. No midline tenderness. No flank tenderness. Musculoskeletal: Normal ROM with no gross deformity. Gastrointestinal: Soft nontender Urological: Neurological: Awake and alert. No focal deficits. Follows commands. Psychiatric: Cooperative. Medical Decision Making Imaging shows no acute findings. Patient with muscle tenderness on exam. He has no evidence of neurovascular compromise. He is given Toradol here in the ED and is discharged home on Robaxin and Naprosyn. Patient follow-up with PCP. Patient was encouraged to return to the ED if symptoms worsen or change. Assessment/Plan Back strain (S39.012A: Strain of muscle, fascia and tendon of lower back, initial encounter) Orders: ketorolac, 60 mg = 2 mL, Injection, IntraMuscular, Once, Stop date 12/03/20 11:10:00 EDT, STAT, Start date 12/03/20 11:10:00 EDT, 12/03/20 11:10:00 EDT methocarbamol, 1,500 mg = 2 tab(s), Oral, TID, X 3 day(s), # 18 tab(s), Refills(s) 0 naproxen, 500 mg = 1 tab(s), Oral, BID, PRN for pain, # 20 tab(s), Refills(s) 0 XR Spine Thoracic 3 Views Medications Administered Given ketorolac 60 mg/2 mL Injection, 60 mg, IntraMuscular Disposition Plan Patient Discharge Condition Disposition: Discharged home Condition: Improved and stable Counseled: Patient and/or family were counseled to workup, results, treatment plan and follow-up recommendations Discharge Prescription List Prescriptions Naprosyn 500 mg Tab, 500 mg= 1 tab(s), Oral, BID, PRN Robaxin-750 oral tablet, 1500 mg= 2 tab(s), Oral, TID Follow-up With When Contact Information PHOEBE ZUÑIGA In 3 days 12/06/2020 [place] [address]- [facility] (1) Additional Instructions: Patient Education Thoracic Strain Attestation Patient seen and evaluated by the physician equity sales assistant. Attending physician was present in the emergency department and supervised care. This report was transcribed using voice recognition software. Every effort was made to ensure accuracy, however, inadvertently computerized dairy lab technician mistakes may be present. Appropriate healthcare PPE was used in evaluating this patient. The patient was placed in a mask. The healthcare provider was wearing mask, gloves, googles and utilizing proper hand hygiene. All equipment was properly cleansed. Problem List/Past Medical History Ongoing Smoker Historical No qualifying data Medications Inpatient No active inpatient medications Home No active home medications Allergies penicillin (Swelling) Lab Results No qualifying data available. Diagnostic Results XR Spine Thoracic 3 Views 12/03/20 11:34:48 NEGATIVE: No fracture, dislocation or other acute abnormality Read By: Uli Shah PA-C 12/03/20 11:39:10 IMPRESSION: NEGATIVE THORACIC SPINE CLINICAL INFORMATION: Pain, Traumatic COMPARISON: NONE. FINDINGS: number of views views of the thoracic spine were obtained. The thoracic spine appears normal without evidence of acute fracture or subluxation. Intervertebral disc spaces are well-maintained. There is no paraspinal mass seen. Signed By: Vijay Jenkins M.D. [facility] Comment on above: Result Comment: Elec tronically Signed By: Uli Shah PA-C\.br\Date and Time Signed: 12/03/20 12:36 EDT\.br\Electronically Co-Signed By: Mario Gaming DO\.br\Date and Time Co-Signed: 12/03/20 13:22 EDT ED Patient Education Noteon 12-03-2020 ED Patient Education Note Orthopedics Thoracic Strain A thoracic strain, which is sometimes called a mid-back strain, is an injury to the muscles or tendons that attach to the upper part of your back behind your chest. This type of injury occurs when a muscle is overstretched or overloaded. Thoracic strains can range from mild to severe. Mild strains may involve stretching a muscle or tendon without tearing it. These injuries may heal in 1?2 weeks. More severe strains involve tearing of muscle fibers or tendons. These will cause more pain and may take 6?8 weeks to heal. What are the causes? This condition may be caused by: ? Trauma, such as a fall or a hit to the body. ? Twisting or overstretching the back. This may result from doing activities that require a lot of energy, such as lifting heavy objects. In some cases, the cause may not be known. What increases the risk? This injury is more common in: ? Athletes. ? People with obesity. What are the signs or symptoms? The main symptom of this condition is pain in the middle back, especially with movement. Other symptoms include: ? Stiffness or limited range of motion. ? Sudden muscle tightening (spasms). How is this diagnosed? This condition may be diagnosed based on: ? Your symptoms. ? Your medical history. ? A physical exam. ? Imaging tests, such as X-rays or an MRI. How is this treated? This condition may be treated with: ? Resting the injured area. ? Applying heat and cold to the injured area. ? Wzyb-qor-vyrwrgk medicines for pain and inflammation, such as NSAIDs. ? Prescription pain medicine or muscle relaxants may be needed for a short time. ? Physical therapy. This will involve doing stretching and strengthening exercises. Follow these instructions at home: Managing pain, stiffness, and swelling ? If directed, put ice on the injured area. ? Put ice in a plastic bag. ? Place a towel between your skin and the bag. ? Leave the ice on for 20 minutes, 2?3 times a day. ? If directed, apply heat to the affected area as often as told by your health care provider. Use the heat source that your health care provider recommends, such as a moist heat pack or a heating pad. ? Place a towel between your skin and the heat source. ? Leave the heat on for 20?30 minutes. ? Remove the heat if your skin turns bright red. This is especially important if you are unable to feel pain, heat, or cold. You may have a greater risk of getting burned. Activity ? Rest and return to your normal activities as told by your health care provider. Ask your health care provider what activities are safe for you. ? Do exercises as told by your health care provider. Medicines ? Take jeec-ljf-gdftonn and prescription medicines only as told by your health care provider. ? Ask your health care provider if the medicine prescribed to you: ? Requires you to avoid driving or using heavy machinery. ? Can cause constipation. You may need to take these actions to prevent or treat constipation: ? Drink enough fluid to keep your urine pale yellow. ? Take gtke-bqn-dzxsqhw or prescription medicines. ? Eat foods that are high in fiber, such as beans, whole grains, and fresh fruits and vegetables. ? Limit foods that are high in fat and processed sugars, such as fried or sweet foods. Injury prevention To prevent a future mid-back injury: ? Always warm up properly before physical activity or sports. ? Cool down and stretch after being active. ? Use correct form when playing sports and lifting heavy objects. Bend your knees before you lift heavy objects. ? Use good posture when sitting and standing. ? Stay physically fit and maintain a healthy weight. ? Do at least 150 minutes of moderate-intensity exercise each week, such as brisk walking or water aerobics. ? Do strength exercises at least 2 times each week. General instructions ? Do not use any products that contain nicotine or tobacco, such as cigarettes, e-cigarettes, and chewing tobacco. If you need help quitting, ask your health care provider. ? Keep all follow-up visits as told by your health care provider. This is important. Contact a health care provider if: ? Your pain is not helped by medicine. ? Your pain or stiffness is getting worse. ? You develop pain or stiffness in your neck or lower back. Get help right away if you: ? Have shortness of breath. ? Have chest pain. ? Develop numbness or weakness in your legs or arms. ? Have involuntary loss of urine (urinary incontinence). Summary ? A thoracic strain, which is sometimes called a mid-back strain, is an injury to the muscles or tendons that attach to the upper part of your back behind your chest. ? This type of injury occurs when a muscle is overstretched or overloaded. ? Rest and return to your normal activities as told by your health care provider. If directed, (more content not included)... Normal [facility] ED Patient Summaryon 021 ED Patient Summary [address] [address] Patient Discharge Instructions Person Information Name: ERNESTO VILLANUEVA Age: 25 Years Arrival Date: 12/03/2020 11:03:47 Discharge Diagnosis: Back strain Primary Care Physician: PHOEBE ZUÑIGA MD Provider Information Primary Provider: Mario Gaming DO Advanced Wire Dropper:Uli Shah PA-C The exam and treatment you received in the Emergency Department were for an urgent problem and are not intended as complete care. It is important that you follow up with a doctor, nurse practitioner, or physician?s equity sales assistant for ongoing care. If your symptoms become worse or you do not improve as expected and you are unable to reach your usual health care provider, you should return to the Emergency Department. We are available 24 hours a day. ERNESTO VILLANUEVA has been given the following list of patient education materials, prescriptions and follow-up instructions: Follow-up Instructions: With: Address: When: PHOEBE ZUÑIGA [address] [place] [id number] Business (1) In 3 days 12/06/2020 In the event that this physician does not participate in your insurance network, please consult with your insurance company to find a nearby participating provider. Patient Education Materials: Thoracic Strain A MESSAGE TO ALL PATIENTS REGARDING OPIOIDS PRESCRIPTION OPIOIDS: WHAT YOU NEED TO KNOW Prescription opioids can be used to help relieve qjoozujl-rk-rajhms pain and are often prescribed following a surgery or injury, or for certain health conditions. These medications can be an important part of the treatment but also come with serious risks. It is important to work with your healthcare provider to make sure you are getting the safest, most effective care. WHAT ARE THE RISKS AND SIDE EFFECTS OF OPIOID USE? Prescription opioids carry serious risks of addiction and overdose, especially with prolonged use. An opioid overdose, often marked by slowed breathing, can cause sudden . The use of prescription opioids can have a number of side effects as well, even when taken as directed: ? Tolerance?meaning you might need to take more of the medication for the same pain relief ? Physical dependence?meaning you have symptoms of withdrawal when a medication is stopped ? Increased sensitivity to pain ? Constipation ? Nausea, vomiting, and dry mouth ? Sleepiness and dizziness ? Confusion ? Depression ? Low levels of testosterone that can result in lower sex drive, energy, and strength ? Itching and sweating RISKS ARE GREATER WITH: ? History of drug misuse, substance use disorder, or overdose ? Mental health conditions (such as depression or anxiety) ? Sleep apnea ? Older age (65 years and older) ? Avoid alcohol while taking prescription opioids. Also, unless specifically advised by your health care provider, medications to avoid include: ? Benzodiazepines (such as Xanax or Valium) ? Muscle relaxants (such as Soma or Flexeril) ? Hypnotics (such as Ambien or Lunesta) ? Other prescription opioids KNOW YOUR OPTIONS Talk to your health care provider about ways to manage your pain that don?t involve prescription opioids. Some of these options may actually work better and have fewer risks and side effects. Options may include: ? Pain relievers such as acetaminophen, ibuprofen, and naproxen ? Some medication that are also used for depression or seizures ? Physical therapy and exercise ? Cognitive behavioral therapy, a psychological, goal-directed approach, in which patients learn how to modify physical, behavioral, and emotional triggers of pain and stress. IF YOU ARE PRESCRIBED OPIOIDS FOR PAIN: ? Never take opioids in greater amounts or more often than prescribed. ? Follow up with your primary health care provider. o Work together to create a plan on how to manage your pain. o Talk about ways to help manage your pain that don?t involve prescription opioids. o Talk about any and all concerns and side effects. ? Help prevent misuse and abuse o Never sell or share prescription opioids. o Never use another person?s prescription opioids. ? Store prescription opioids in a secure place and out of reach of others (this may include visitors, children, friends, and family). ? Safely dispose of unused prescription opioids: Find your community drug take-back program or your pharmacy mail-back program, or flush them down the toilet, following guidance from the Food and Drug Administration (www.fda.gov/Drugs/Re sourcesForYou). ? Visit www.cdc.gov/drugoverd ose to learn about the risks of opioids abuse and overdose. ? If you believe you may be struggling with addiction, tell your health urgent care physician and ask for guidance or call [facility] National Helpline at 4-175-745-ZEVF. b Source: Department of Health an (more content not included)... Normal [facility] XR Spine Thoracic 3 Viewson 12-03-2020 XR Spine Thoracic 3 Views Exam Date/Time: 12/03/2020 11:25 EDT Reason for Exam: Pain, Traumatic Report IMPRESSION: NEGATIVE THORACIC SPINE CLINICAL INFORMATION: Pain, Traumatic COMPARISON: NONE. FINDINGS: number of views views of the thoracic spine were obtained. The thoracic spine appears normal without evidence of acute fracture or subluxation. Intervertebral disc spaces are well-maintained. There is no paraspinal mass seen. FINAL REPORT Dictated: 12/03/2020 11:36 am Vijay Jenkins M.D. Signed (Electronic Signature): 12/03/2020 11:36 am Signed by: Vijay Jenkins M.D. Transcribed by: TARA Technologist: KIKE [facility] Vital Signs Date Time Vital Sign Value Performing Clinician Faci dario 08-12-2021 14:05-0400 Diastolic blood pressure 56 mm[Hg] MD Rishi Guerra Work Phone: [facility] 08-12-2021 14:05-0400 Heart rate 60 /min MD Rishi Guerra Work Phone: [facility] 08-12-2021 14:05-0400 Respiratory rate 18 /min MD Rishi Guerra Work Phone: [facility] 08-12-2021 14:05-0400 SaO2% (BldA) [Mass fraction] 100 % MD Rishi Guerra Work Phone: [facility] 08-12-2021 14:05-0400 Systolic blood pressure 111 mm[Hg] MD Rishi Guerra Work Phone: [facility] 08-12-2021 13:03-0400 Body height 170.18 cm MD Rishi Guerra Work Phone: [facility] 08-12-2021 13:03-0400 Body mass index (BMI) [Ratio] 24.3 kg/m2 MD Rishi Guerra Work Phone: [facility] 08-12-2021 13: Body temperature 98.1 [degF] MD Rishi Guerra Work Phone: [facility] 08-12-2021 13: Body weight 70.3 kg MD Rishi Guerra Work Phone: [facility] Encounters Encounter Date Encounter Type Care Provider Facility Start: 12-09-2023 End: 12-09-2023 ambulatory AAMIR [facility] Not Available Start: 04-30-2023 End: 04-30-2023 ambulatory AAMIR Gonzalez [facility] Not Available Start: 08-12-2021 End: 08-12-2021 Admission to same day surgery center MD Rishi Guerra Work Phone: [facility] Start: 08-08-2021 End: 08-08-2021 Patient encounter procedure MD Rishi Guerra Work Phone: [facility] Start: 08-02-2021 End: 08-03-[address] PHOEBE ZUÑIGA Facility:[facility]1 Procedures Date Procedure Procedure Detail Performing Clinician Start: 08-12-2021 Esophagogastroduodenoscopy MD Rishi Guerra Work Phone: Payers Date Payer Category Payer Unknown [id number] 1995 Unknown [id number] 1993 Unknown [id number] 1959 Unknown [id number] Self-pay Self Pay [id number] Social History Date Type Detail Facility [facility] Work Phone: Start: 1995 Sex Assigned At Male F [facility] Start: 08-12-2021 [facility] Goals Date Patient Goal Desired Activity /State Procedure note 08-12-2021 Note Date & Type Note Facility 08-12-2021 Procedure note [facility] Evaluation note Note Date & Type Note Facility Evaluation note No assessment information availa erin [facility] Work Phone: History and physical note Note Date & Type Note Facility History and physical note Note Date/Time August 12, 2021 1:27 pm [facility] [address] [place] [address] Gastroenterology H&P Signed Patient: Ernesto Villanueva MR#: [id number] : 1995 Acct:[id number] Age/Sex: 26 / M Adm Date: 2 Loc: Room: Type: [facility] Attending Dr: Rishi Guerra MD Copies to: MD Phoebe Han MD~ Date of Service: 08/12/2021 HISTORY & PHYSICAL: Patient's history with special attention to the cardiovascular, pulmonary systems and the current problem was reviewed with the patient immediately prior to the procedure. Present medications and doses reviewed in the EMR. Allergies and pertinent laboratory tests were also reviewedat this time in the EMR. The physical examination, as below, was then performed. Indication, assessment and HPI: 26-year-old male presents for EGD to evaluate history of hematemesis. States he had several episodes of coffee-ground emesis and amber blood while he was sick having multiple bouts of emesis. This resolved after about a day and a half. Denies NSAID use. Family history of GI malignancy? No PHYSICAL EXAMINATION Mouth and Pharynx : Moist mucus membranes, normal dentition Cardiac: Regular rate, regular rhythm Pulmonary: Clear to auscultation bilaterally, no wheezing Neurological: Alert and oriented x3, no focal deficits noted Abdomen: Abdomen soft, non-tender REVIEW OF SYSTEMS Constitutional: Denies malaise, fevers Cardiovascular: Denies chest pain, palpitations Respiratory: Denies shortness of breath, wheezing Gastrointestinal: Per HPI Genitourinary: Denies dysuria, polyuria Musculoskeletal: Denies joint swelling, joint stiffness Neurological: Denies numbness, tingling Integumentary: Denies rashes, skin lesions Endocrine: Denies fatigue, weight loss Written informed consent obtained from the patient. Risks (including but not limited to perforation, infection, bloating, bleeding, need for emergent surgeryand loss of life), benefits and alternatives explained and questions answered. The patient verbalized understanding. Based on history patient is an appropriate candidate for the procedure. Rishi Guerra MD Documented By: Rishi Guerra MD 08/12/21 132 Signed By: <Electronically signed by Rishi Guerra MD> 08/12/21 1327 [facility] Work Phone: Summary Purpose Family History No Family History Records Found Relationship Condition Age at Onset Recorded Date/T glen Not Specified Myocardial infarction Unknown family member Malignant neoplasm of colon Unknown family member Malignant neoplasm of lung Unknown Advance Directives No Advanced Directives Records Found Advance Directive Response Recorded Date/ Time Advance Directives No August 06, 022 2:39pm Chief Complaint and Reason for Visit Chief Complaint Hematemisis Chief Complaint Hematemisis Hematemisis Additional Source Comments (unrecognized sect ion and content) No Status Records FoundNo Status Records FoundNo Status Records FoundNo Status Records Found INFORMATION SOURCE (unrecogn ized section and content) DATE CREATED AUTHOR 05/28/2021 [facility] DATE CREATED AUTHOR AUTHOR'S ORGANIZ ATION 08/07/2021 [facility] DATE CREATED AUTHOR AUTHOR'S ORGANIZ ATION 08/19/2021 [facility] DATE CREATED AUTHOR AUTHOR'S ORGANIZ ATION 12/11/2023 [facility] EPIC Care Teams (unrecognized sec tion and content) Team Status: Inactive Member Role Status Dates Rishi Guerra MD Attending Provider Active Phoebe Zuñiga MD Primary Care Provider Active Team Status: Active Member Role Status Dates Phoebe Zuñiga MD Primary Care Provider Active Goals (unrecognized section and content) Goals may be documented in a n alternate section FOR RECORDS PERTAINING TO PATIENTS WHO ARE OR HAVE BEEN ENROLLED IN A CHEMICAL DEPENDENCY/SUBSTANCEABUSE PROGRAM, SOME INFORMATION MAY BE OMITTED. This clinical summary was aggregated from multiple sources. Caution should be exercised in using it in the provision of clinical care. This summary normalizes information from multiple sources, and as a consequence, information in this document may materially change the coding, format and clinical context of patient data. In addition, data may be omitted in some cases. CLINICAL DECISIONS SHOULD BE BASED ON THE PRIMARY CLINICAL RECORDS. [facility] [employer] [facility]. provides no warranty or guarantee of the accuracy or completeness of information in this document.
[2024-03-08] MEDS: PREDNISONE 20 MG TABLET 60 MG PO (00:19)
== END 2024-03-08 00:24 | disposition home or self-care (01) ==
PROVIDERS: Emergency Provider Internal Medicine; PCP Family Medicine
DX: M54.6 Pain in thoracic spine (principal)
CPT/HCPCS: 99283; J7512